=== PATIENT | female | born 1965 | race American Indian/Alaskan Native ===

== ENCOUNTER 2024-06-04 18:20 | Inpatient (IN) | payer SELFPAY ==
[~2024-06-04] VITALS: Ht 152.4 cm; Wt 68.0 kg
[2024-06-04] MEDS ORDERED: BP MED (18:30)
[2024-06-04] MEDS ORDERED: MORPHINE SULFATE 4 MG/1 ML DISP.SYRIN ONE (20:10)
[2024-06-04] MEDS: MORPHINE SULFATE 4 MG/1 ML DISP.SYRIN IV ONE (20:12)
[2024-06-04] MEDS ORDERED: KETOROLAC TROMETHAMINE 15 MG INJ ONE (20:15)
[2024-06-04] MEDS: KETOROLAC TROMETHAMINE 15 MG INJ IVP ONE (20:15)
[2024-06-04 23:02] LABS: BASOPHILS % (AUTO) 0.4 % (0.0-2.0); EOSINOPHILS # (AUTO) 0.1 K/uL (0.0-0.7); EOSINOPHILS % (AUTO) 0.7 % (0.0-7.0); HEMATOCRIT 39.2 % (31.2-41.9); HEMOGLOBIN 13.3 g/dL (10.9-14.3); LYMPHOCYTES # (AUTO) 2.2 K/uL (0.8-4.8); LYMPHOCYTES % (AUTO) 17.5 % (20.5-51.5); MEAN CORPUSCULAR HEMOGLOBIN 29.7 uug (24.7-32.8); MEAN CORPUSCULAR HGB CONC 34 g/dL (32.3-35.6); MEAN CORPUSCULAR VOLUME 87.8 fL (75.5-95.3); MONOCYTES # (AUTO) 0.7 K/uL (0.1-1.30); MONOCYTES % (AUTO) 5.5 % (0.0-11.0); NEUTROPHILS # (AUTO) 9.7 K/uL (1.8-8.9); NEUTROPHILS % (AUTO) 75.9 % (38.5-71.5); PLATELET COUNT (AUTO) 283 K/uL (179-408); RED BLOOD CELL COUNT(AUTO) 4.47 MIL/uL (3.63-4.92); RED CELL DISTRIBUTION WIDTH 13.4 % (12.3-17.7); WHITE BLOOD COUNT (AUTO) 12.8 K/uL (3.8-11.8)
[2024-06-04 23:12] LABS: CREATININE 0.8 mg/dL (0.6-1.3); POTASSIUM 4.2 mmol/L (3.5-5.1)
[2024-06-04 23:17] LABS: ALBUMIN 3.7 g/dL (3.4-5.0); BILIRUBIN,TOTAL 0.7 mg/dL (0.2-1.0); TOTAL PROTEIN, SERUM 7.3 g/dL (6.4-8.2)
[2024-06-05] MEDS ORDERED: ACETAMINOPHEN 650 MG SUPP.RECT RC PRN (01:00)
[2024-06-05 03:00] VITALS: BP 148/72; TEMP 98.2; O2SAT 95
[2024-06-05] MEDS: IV D5/ 0.9% NACL 1,000 ML IV PRN (03:12)
[2024-06-05] MEDS: HYDROMORPHONE 1 MG/1 ML DISP.SYRIN IV PRN (03:26)
[2024-06-05 06:00] VITALS: BP 123/66; TEMP 98.1; O2SAT 95
[2024-06-05 07:40] LABS: BASOPHILS % (AUTO) 0.4 % (0.0-2.0); EOSINOPHILS # (AUTO) 0.1 K/uL (0.0-0.7); EOSINOPHILS % (AUTO) 1.2 % (0.0-7.0); HEMATOCRIT 35.1 % (31.2-41.9); HEMOGLOBIN 12.3 g/dL (10.9-14.3); LYMPHOCYTES % (AUTO) 22.7 % (20.5-51.5); MEAN CORPUSCULAR HEMOGLOBIN 30.8 uug (24.7-32.8); MEAN CORPUSCULAR HGB CONC 35 g/dL (32.3-35.6); MONOCYTES # (AUTO) 0.6 K/uL (0.1-1.30); MONOCYTES % (AUTO) 7.1 % (0.0-11.0); NEUTROPHILS # (AUTO) 6.1 K/uL (1.8-8.9); NEUTROPHILS % (AUTO) 68.6 % (38.5-71.5); PLATELET COUNT (AUTO) 275 K/uL (179-408); RED BLOOD CELL COUNT(AUTO) 3.98 MIL/uL (3.63-4.92); RED CELL DISTRIBUTION WIDTH 13.3 % (12.3-17.7); WHITE BLOOD COUNT (AUTO) 8.9 K/uL (3.8-11.8)
[2024-06-05 07:56] LABS: ALBUMIN 3.3 g/dL (3.4-5.0); BILIRUBIN,TOTAL 0.5 mg/dL (0.2-1.0); CALCIUM 8.9 mg/dL (8.5-10.1); CREATININE 0.7 mg/dL (0.6-1.3); DIFFERENTIAL COMMENT 1; MAGNESIUM 2.3 mg/dL (1.8-2.4); PHOSPHOROUS 4.9 mg/dL (2.5-4.9); POTASSIUM 4.7 mmol/L (3.5-5.1); TOTAL PROTEIN, SERUM 6.8 g/dL (6.4-8.2)
[2024-06-05 08:00] VITALS: BP 163/75; TEMP 98.2; O2SAT 96
[2024-06-05] MEDS: PANTOPRAZOLE SODIUM 40 MG VIAL IV SCH (08:16)
[2024-06-05] MEDS: ONDANSETRON 4 MG/2 ML VIAL IV PRN (08:17)
[2024-06-05 10:54] LABS: *BILIRUBIN,URIN NEGATIVE (NEGATIVE); *BLOOD, URINE NEGATIVE (NEGATIVE); *CLARITY,URINE CLEAR (CLEAR); *COLOR,URINE YELLOW (YELLOW); *KETONES,URINE NEGATIVE (NEGATIVE); *PROTEIN,URINE NEGATIVE (NEGATIVE); *UROBILINOGEN,URINE 0.2 E.U./dl (NORMAL); LEUKOCYTE ESTERASE ,URINE NEGATIVE (NEGATIVE); NITRITE, URINE NEGATIVE (NEGATIVE); PH,URINE 6.5 (5.0-8.0); UGLUCOSE NEGATIVE (NEGATIVE)
[2024-06-05 11:31] VITALS: BP 140/73; TEMP 97.6; O2SAT 97
[2024-06-05 15:34] VITALS: BP 140/71; TEMP 98.2; O2SAT 91
[2024-06-05] MEDS ORDERED: SIMV5TAB59 PO (22:00)
[2024-06-05] MEDS ORDERED: MIRA50TA PO (22:00)
[2024-06-05] MEDS ORDERED: ACET650T10 PO (22:00)
[2024-06-05] MEDS ORDERED: AMOX1TAB16 PO (22:00)
[2024-06-06 06:53] LABS: BASOPHILS % (AUTO) 0.2 % (0.0-2.0); EOSINOPHILS # (AUTO) 0.1 K/uL (0.0-0.7); EOSINOPHILS % (AUTO) 0.6 % (0.0-7.0); HEMATOCRIT 35.8 % (31.2-41.9); HEMOGLOBIN 12.4 g/dL (10.9-14.3); LYMPHOCYTES # (AUTO) 1.2 K/uL (0.8-4.8); LYMPHOCYTES % (AUTO) 9.4 % (20.5-51.5); MEAN CORPUSCULAR HEMOGLOBIN 30.2 uug (24.7-32.8); MEAN CORPUSCULAR HGB CONC 35 g/dL (32.3-35.6); MONOCYTES # (AUTO) 0.4 K/uL (0.1-1.30); MONOCYTES % (AUTO) 3.3 % (0.0-11.0); NEUTROPHILS # (AUTO) 10.7 K/uL (1.8-8.9); NEUTROPHILS % (AUTO) 86.5 % (38.5-71.5); PLATELET COUNT (AUTO) 246 K/uL (179-408); RED BLOOD CELL COUNT(AUTO) 4.12 MIL/uL (3.63-4.92); RED CELL DISTRIBUTION WIDTH 13.3 % (12.3-17.7); WHITE BLOOD COUNT (AUTO) 12.3 K/uL (3.8-11.8)
[2024-06-06 07:28] LABS: CALCIUM 8.7 mg/dL (8.5-10.1); CREATININE 0.7 mg/dL (0.6-1.3); MAGNESIUM 2.1 mg/dL (1.8-2.4); PHOSPHOROUS 4.2 mg/dL (2.5-4.9); POTASSIUM 3.9 mmol/L (3.5-5.1)
[2024-06-06 07:49] LABS: DIFFERENTIAL COMMENT 1
[2024-06-06] MEDS ORDERED: PIPERACILLIN SODIUM/TAZOBACTAM 3.375 G in IV DEXTROSE 5% 50 ML IV SCH (08:15)
[2024-06-06] MEDS: PIPERACILLIN SODIUM/TAZOBACTAM 3.375 G in IV DEXTROSE 5% 100 ML IV SCH (08:23)
[2024-06-06] MEDS ORDERED: VANCOMYCIN 1000 MG VIAL ONE (09:15)
[2024-06-06] MEDS ORDERED: MIDAZOLAM HCL 2 MG/2 ML VIAL ONE (10:19)
[2024-06-06] MEDS ORDERED: FAMOTIDINE. 20 MG/2 ML VIAL IV ONE (10:20)
[2024-06-06] MEDS ORDERED: ROCURONIUM BROMIDE 50 MG/5 ML VIAL ONE (10:20)
[2024-06-06] MEDS ORDERED: FENTANYL CITRATE 250 MCG/5 ML AMPUL ONE (10:20)
[2024-06-06] MEDS ORDERED: BUPIVACAINE PF 0.5% 30 ML VIAL ONE (10:21)
[2024-06-06] MEDS ORDERED: ACETAMINOPHEN 500 MG TABLET ONE (10:27)
[2024-06-06] MEDS ORDERED: LOSA25TA27 PO (11:20)
[2024-06-06] MEDS ORDERED: TRAZ-182 PO (11:20)
[2024-06-06] MEDS ORDERED: SIMV10TA98 PO (11:20)
[2024-06-06] MEDS ORDERED: PROPOFOL 200 MG/20 ML BOTTLE ONE (11:39)
[2024-06-06] MEDS ORDERED: LIDOCAINE HCL 1% 20 ML VIAL ONE (11:47)
[2024-06-06 13:27] VITALS: BP 131/55; TEMP 98; O2SAT 95
[2024-06-06 13:45] VITALS: BP 122/96; TEMP 98.2; O2SAT 97
[2024-06-06] MEDS: LOSARTAN POTASSIUM 25 MG TABLET PO SCH (13:45)
[2024-06-06 14:00] VITALS: BP 143/71; TEMP 98.2; O2SAT 96
[2024-06-06] MEDS ORDERED: IV D5 1/2 NS 1000 ML 1,000 ML IV PRN (15:00)
[2024-06-06] MEDS ORDERED: MORPHINE SULFATE 4 MG/1 ML DISP.SYRIN IV PRN (15:15)
[2024-06-06 15:39] VITALS: BP 145/72; TEMP 98.4; O2SAT 97
[2024-06-06] MEDS: POTASSIUM CHLORIDE 20 MEQ in IV D5 1/2 NS 1000 ML 1,000 ML IV PRN (15:48)
[2024-06-06] MEDS: CEFAZOLIN 1 G in IV DEXTROSE 5% 50 ML IV SCH (15:48)
[2024-06-06] MEDS ORDERED: SIMVASTATIN PO SCH (18:00)
[2024-06-06 19:00] VITALS: BP 139/74; TEMP 98.1; O2SAT 95
[2024-06-06] MEDS: HYDROCODONE/APAP 5-325MG TABLET PO PRN (19:54)
[2024-06-06] MEDS: TRAZODONE 50 MG TABLET PO SCH (20:50)
[2024-06-06] MEDS: SIMVASTATIN 10 MG TABLET PO SCH (20:51)
[2024-06-07] MEDS: HYDROCODONE/APAP 10-325 MG TABLET PO PRN (04:52)
[2024-06-07 06:00] VITALS: BP 156/70; TEMP 98.3; O2SAT 96
[2024-06-07 07:05] LABS: BASOPHILS % (AUTO) 0.3 % (0.0-2.0); EOSINOPHILS % (AUTO) 0.3 % (0.0-7.0); HEMATOCRIT 32.2 % (31.2-41.9); HEMOGLOBIN 11.4 g/dL (10.9-14.3); LYMPHOCYTES # (AUTO) 1.7 K/uL (0.8-4.8); LYMPHOCYTES % (AUTO) 18.8 % (20.5-51.5); MEAN CORPUSCULAR HEMOGLOBIN 30.8 uug (24.7-32.8); MEAN CORPUSCULAR HGB CONC 35 g/dL (32.3-35.6); MEAN CORPUSCULAR VOLUME 87.3 fL (75.5-95.3); MONOCYTES # (AUTO) 0.6 K/uL (0.1-1.30); MONOCYTES % (AUTO) 7.4 % (0.0-11.0); NEUTROPHILS # (AUTO) 6.4 K/uL (1.8-8.9); NEUTROPHILS % (AUTO) 73.2 % (38.5-71.5); PLATELET COUNT (AUTO) 234 K/uL (179-408); RED BLOOD CELL COUNT(AUTO) 3.69 MIL/uL (3.63-4.92); RED CELL DISTRIBUTION WIDTH 13.3 % (12.3-17.7); WHITE BLOOD COUNT (AUTO) 8.8 K/uL (3.8-11.8)
[2024-06-07 07:36] LABS: CALCIUM 8.7 mg/dL (8.5-10.1); CREATININE 0.7 mg/dL (0.6-1.3)
[2024-06-07 07:37] LABS: MAGNESIUM 2.3 mg/dL (1.8-2.4); PHOSPHOROUS 3.8 mg/dL (2.5-4.9)
[2024-06-07 07:39] LABS: DIFFERENTIAL COMMENT 1
[2024-06-07 07:44] LABS: POTASSIUM 4.3 mmol/L (3.5-5.1)
[2024-06-07] MEDS: PANTOPRAZOLE SODIUM 40 MG TABLET.DR PO SCH (08:03)
[2024-06-07 11:10] VITALS: BP 128/63; TEMP 98.4; O2SAT 98
[2024-06-07 15:08] VITALS: BP 111/45; TEMP 97.6; O2SAT 94
[2024-06-07 19:38] VITALS: BP 118/58; TEMP 98.2; O2SAT 92
[2024-06-08 06:23] VITALS: BP 150/71; TEMP 98.1; O2SAT 93
[2024-06-08 07:02] LABS: BASOPHILS % (AUTO) 0.4 % (0.0-2.0); EOSINOPHILS # (AUTO) 0.1 K/uL (0.0-0.7); EOSINOPHILS % (AUTO) 1.7 % (0.0-7.0); HEMATOCRIT 32.6 % (31.2-41.9); HEMOGLOBIN 11.5 g/dL (10.9-14.3); LYMPHOCYTES # (AUTO) 2.3 K/uL (0.8-4.8); LYMPHOCYTES % (AUTO) 28.1 % (20.5-51.5); MEAN CORPUSCULAR HEMOGLOBIN 30.7 uug (24.7-32.8); MEAN CORPUSCULAR HGB CONC 35 g/dL (32.3-35.6); MEAN CORPUSCULAR VOLUME 86.9 fL (75.5-95.3); MONOCYTES # (AUTO) 0.5 K/uL (0.1-1.30); MONOCYTES % (AUTO) 6.1 % (0.0-11.0); NEUTROPHILS # (AUTO) 5.1 K/uL (1.8-8.9); NEUTROPHILS % (AUTO) 63.7 % (38.5-71.5); PLATELET COUNT (AUTO) 232 K/uL (179-408); RED BLOOD CELL COUNT(AUTO) 3.75 MIL/uL (3.63-4.92); RED CELL DISTRIBUTION WIDTH 13.3 % (12.3-17.7)
[2024-06-08 07:09] LABS: CALCIUM 8.4 mg/dL (8.5-10.1); CREATININE 0.6 mg/dL (0.6-1.3); POTASSIUM 3.9 mmol/L (3.5-5.1)
[2024-06-08 07:35] LABS: DIFFERENTIAL COMMENT 1
[2024-06-08 11:23] VITALS: BP 146/68; TEMP 98.2; O2SAT 96
[2024-06-08] MEDS ORDERED: PREG50CA PO (12:39)
[2024-06-08] MEDS ORDERED: HYDR-3980 PO (12:39)
[2024-06-08] MEDS ORDERED: ASPI-612 PO (12:42)
[2024-06-08] MEDS: MAGNESIUM HYDROXIDE 30 ML LIQUID UDC PO PRN (15:16)
[2024-06-08 15:37] VITALS: BP 115/62; TEMP 98.4; O2SAT 96
== END 2024-06-08 15:53 | disposition home or self-care (01) | DRG 494 ==
LOC: ER 18:20 → MEDSURG3 06-05 00:47
PROVIDERS: ADMIT Internal Medicine
PROC: 0QSJ04Z Reposition Right Fibula with Internal Fixation Device, Open Approach (ICD-10-PCS; principal; 2024-06-06)
PROC: 0QSG04Z Reposition Right Tibia with Internal Fixation Device, Open Approach (ICD-10-PCS; 2024-06-06)
DX: S82.841A Displaced bimalleolar fracture of right lower leg, initial encounter for closed fracture (principal); V29.888A Rider (driver) (passenger) of other motorcycle injured in other specified transport accidents, initial encounter; Y92.410 Unspecified street and highway as the place of occurrence of the external cause; I10 Essential (primary) hypertension; D72.829 Elevated white blood cell count, unspecified; E78.5 Hyperlipidemia, unspecified; M77.31 Calcaneal spur, right foot; Z85.43 Personal history of malignant neoplasm of ovary; Z90.722 Acquired absence of ovaries, bilateral; R91.1 Solitary pulmonary nodule
CPT/HCPCS: 36415; 71045; 73610; 83735; 84100; 85025; 85610; 85730; 93005; A9150; C1713; G0378; J0690; J1100; J1171; J1885; J2250; J2270; J2405; J2470; J2543; J2765; J3010; J3370; J3480; J3490; J7042